=== PATIENT | female | born 1940 | race Caucasian/White ===

== ENCOUNTER 2017-12-16 17:48 | Inpatient (IN) | payer OTHER, MEDICARE ==
[2017-12-16 17:49] VITALS: O2SAT 99
[2017-12-16] MEDS ORDERED: MORPHINE SULFATE 4 MG/ML INJ ONE (17:59)
[2017-12-16] MEDS ORDERED: ONDANSETRON HCL 4 MG/2 ML VIAL ONE (17:59)
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
[2017-12-16 18:16] LABS: HEMATOCRIT 24.8 % (35.0-46.0); HEMOGLOBIN 8.4 GM/DL (11.6-15.3); MEAN CELL VOLUME 92.1 FL (80.0-100.0); MEAN CORPUSCULAR HEMOGLOBIN 31.2 PG (27.0-34.0); MEAN CORPUSCULAR HGB CONC 33.9 % (32.0-36.0); MEAN PLATELET VOLUME 7.3 FL (7.0-11.0); PLATELET COUNT 73 TH/MM3 (150-450); RED CELL DISTRIBUTION WIDTH 16.4 % (11.6-17.2); WHITE BLOOD COUNT 1.5 TH/MM3 (4.0-11.0)
[2017-12-16] MEDS ORDERED: IOHEXOL 350 MG/ML 10 ML VIAL (for RAD DIAG) IVCONTRAST ONE (18:17)
[2017-12-16 18:23] VITALS: O2SAT 97
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
[2017-12-16 18:28] VITALS: BP 131/62; PULSE 91; RESP 18; O2SAT 99
[2017-12-16 18:30] LABS: INTERNATIONAL NORMALIZED RATIO 1.1 RATIO; PROTHROMBIN TIME - PATIENT 10.7 SEC (9.8-11.6)
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
[2017-12-16 19:00] VITALS: BP 128/60; PULSE 85; RESP 18; O2SAT 97
[2017-12-16] MEDS ORDERED: MORPHINE SULFATE 4 MG/ML INJ IV ONE (19:00)
[2017-12-16 19:48] LABS: LYMPHOCYTES 78 % (9-44); MONOCYTES 10 % (0-8); POLYS (SEG NEUTROPHILS) 12 % (16-70)
[2017-12-16 19:54] LABS: NEUTROPHIL # MANUAL DIFF 0.2 TH/MM3 (1.8-7.7)
[2017-12-16] MEDS ORDERED: CEFEPIME INJ 2,000 MG in SODIUM CHLORIDE 0.9% INJ 100 ML IV SCH (20:45)
[2017-12-16 21:32] LABS: ALBUMIN 2.8 GM/DL (3.4-5.0); AST (GOT) 33 U/L (15-37); BICARBONATE 25.2 MEQ/L (21.0-32.0); BLOOD UREA NITROGEN 30 MG/DL (7-18); CALCIUM 8.6 MG/DL (8.5-10.1); CHLORIDE 103 MEQ/L (98-107); CREATININE 1.04 MG/DL (0.50-1.00); GLOMERULAR FILTRATION RATE 46 ML/MIN (>89); GLUCOSE,RANDOM 93 MG/DL (74-106); SODIUM (NA) 138 MEQ/L (136-145)
[2017-12-16 21:33] LABS: ALT (GPT) 32 U/L (10-53)
[2017-12-16 21:35] LABS: ALKALINE PHOSPHATASE 77 U/L (45-117); TOTAL BILIRUBIN ADULT 0.6 MG/DL (0.2-1.0); TOTAL PROTEIN 6.2 GM/DL (6.4-8.2)
[2017-12-16] MEDS ORDERED: NALOXONE HCL 0.4 MG/ML AMP IV PUSH PRN (22:00)
[2017-12-16] MEDS ORDERED: LACTULOSE SYRUP 20 GM/30 ML CUP PO PRN (22:00)
[2017-12-16] MEDS ORDERED: ONDANSETRON HCL 4 MG/2 ML VIAL IVP PRN (22:00)
[2017-12-16] MEDS ORDERED: SODIUM CHLORIDE 0.9% FLUSH 10 ML FLUSH IV FLUSH PRN (22:00)
[2017-12-16] MEDS ORDERED: SENNOSIDES 8.6 MG TAB PO PRN (22:00)
[2017-12-16] MEDS ORDERED: MAGNESIUM HYDROXIDE SUSP 30 ML CUP PO PRN (22:00)
[2017-12-16] MEDS ORDERED: BISACODYL 10 MG SUPP RECTAL PRN (22:00)
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
[2017-12-16] MEDS ORDERED: ONDANSETRON ODT 4 MG TAB PO PRN (22:45)
[2017-12-16 23:00] VITALS: BP 119/57; PULSE 76; RESP 14; TEMP 98.7; O2SAT 98
[2017-12-16] MEDS: PANTOPRAZOLE SODIUM 40 MG VIAL IV PUSH SCH (23:19)
[2017-12-17] VITALS (12 sets, daily range): BP systolic 57–131; BP diastolic 53–66; PULSE 67–97; RESP 16; TEMP 97.8–99.5; O2SAT 97–100
[2017-12-17 00:15] LABS: AMORPHOUS SEDIMENT, URINE RARE; BACTERIA, URINE RARE /hpf; BILIRUBIN, URINE NEG (NEG); BLOOD, URINE LARGE (NEG); GLUCOSE,URINE NEG (NEG); KETONE, URINE 10 mg/dL (NEG); MUCUS URINE FEW /lpf (OCC); NITRITE,URINE NEG (NEG); PH, URINE 5.5 (5.0-8.5); URINE LEUKOCYTE ESTERASE TRACE (NEG); WHITE BLOOD CELL CLUMPS OCC
[2017-12-17 00:16] LABS: URINE COLOR LIGHT-RED (YELLW/STRAW)
[2017-12-17] MEDS ORDERED: SODIUM CHLOR 0.9% 250 ML INJ 250 ML IV ONE (01:45)
[2017-12-17] MEDS: CEFEPIME INJ 2,000 MG in SODIUM CHLORIDE 0.9% INJ 100 ML IV SCH ×5 (05:00→21:52)
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
[2017-12-17] MEDS: PANTOPRAZOLE SODIUM 40 MG VIAL IV PUSH SCH ×2 (08:58→21:52)
[2017-12-17] MEDS: SODIUM CHLORIDE 0.9% FLUSH 10 ML FLUSH IV FLUSH SCH ×2 (08:58→21:00)
[2017-12-17] MEDS: SODIUM CHLOR 0.9% 1000 ML INJ 1,000 ML IV SCH ×2 (09:01→21:59)
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
[2017-12-17] MEDS ORDERED: MORPHINE SULFATE 2 MG/ML SYRINGE IV PUSH PRN (12:00)
[2017-12-17] MEDS: clonazePAM 0.5 MG TAB PO SCH ×2 (14:45→21:52)
[2017-12-17] MEDS ORDERED: VENLAFAXINE HCL XR 37.5 MG CAP PO SCH (14:45)
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
[2017-12-17 19:47] LABS: HEMATOCRIT 27.9 % (35.0-46.0); HEMOGLOBIN 9.7 GM/DL (11.6-15.3); MEAN CELL VOLUME 89.1 FL (80.0-100.0); MEAN CORPUSCULAR HEMOGLOBIN 30.8 PG (27.0-34.0); MEAN CORPUSCULAR HGB CONC 34.6 % (32.0-36.0); MEAN PLATELET VOLUME 7.3 FL (7.0-11.0); PLATELET COUNT 45 TH/MM3 (150-450); RED BLOOD COUNT 3.13 MIL/MM3 (4.00-5.30); WHITE BLOOD COUNT 1.5 TH/MM3 (4.0-11.0)
[2017-12-17 20:49] LABS: LYMPHOCYTES 53 % (9-44); MONOCYTES 12 % (0-8); POLYS (SEG NEUTROPHILS) 35 % (16-70)
[2017-12-17 20:56] LABS: NEUTROPHIL # MANUAL DIFF 0.5 TH/MM3 (1.8-7.7)
[2017-12-17] MEDS: MIRTAZAPINE 15 MG TAB PO SCH (21:52)
[2017-12-17] MEDS: traMADol HCL 50 MG TAB PO PRN (22:05)
[2017-12-18] VITALS (10 sets, daily range): BP systolic 119–137; BP diastolic 55–71; PULSE 60–74; RESP 16–18; TEMP 96.8–99; O2SAT 97–100
[2017-12-18] MEDS: CEFEPIME INJ 2,000 MG in SODIUM CHLORIDE 0.9% INJ 100 ML IV SCH ×3 (05:22→20:27)
[2017-12-18] MEDS: clonazePAM 0.5 MG TAB PO SCH ×3 (06:00→20:26)
[2017-12-18] MEDS: SODIUM CHLOR 0.9% 1000 ML INJ 1,000 ML IV SCH ×2 (07:50→20:19)
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
[2017-12-18 11:56] LABS: ALBUMIN 2.4 GM/DL (3.4-5.0); ALKALINE PHOSPHATASE 68 U/L (45-117); ALT (GPT) 25 U/L (10-53); AST (GOT) 24 U/L (15-37); BLOOD UREA NITROGEN 29 MG/DL (7-18); CALCIUM 8.4 MG/DL (8.5-10.1); CHLORIDE 113 MEQ/L (98-107); CREATININE 0.87 MG/DL (0.50-1.00); GLOMERULAR FILTRATION RATE 63 ML/MIN (>89); GLUCOSE,RANDOM 105 MG/DL (74-106); SODIUM (NA) 144 MEQ/L (136-145); TOTAL BILIRUBIN ADULT 0.8 MG/DL (0.2-1.0); TOTAL PROTEIN 5.7 GM/DL (6.4-8.2)
[2017-12-18] MEDS ORDERED: MORP1TAB24 PO (13:37)
[2017-12-18] MEDS ORDERED: OXYC1CAP PO (13:37)
[2017-12-18] MEDS: PANTOPRAZOLE SODIUM 40 MG VIAL IV PUSH SCH ×2 (14:00→20:26)
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
--- NOTE | 2017-12-18 17:49 | RADRPT ---
EXAM DATE/TIME: 12/18/2017 18:02 [facility] COMPARISON: CHEST SINGLE AP, December 16, 2017, 17:48. INDICATIONS : Left lower chest pain. MEDICAL HISTORY : None. SURGICAL HISTORY : Port placement, right. ENCOUNTER: Initial ACUITY: 1 day PAIN SCORE: 4/10 LOCATION: Left lower chest FINDINGS: A single view of the chest demonstrates no focal consolidation. Minimal basilar atelectasis or scarri ng. No effusion. No pneumothorax. [id number] in the superior vena cava. CONCLUSION: 1. Minimal basilar scarring. No acute findings. Snynwg-x-Onen unchanged. Ramesh Thomason MD on December 18, 2017 at 17:45 Board Certified Radiologist. This report was verified electronically.
[2017-12-18 17:54] LABS: TROPONIN I LESS THAN 0.02 NG/ML (0.02-0.05)
[2017-12-18] MEDS: SODIUM CHLORIDE 0.9% FLUSH 10 ML FLUSH IV FLUSH SCH ×2 (18:49→20:19)
--- NOTE | 2017-12-18 20:11 | HHI.FF ---
Face to Face Verification Diagnosis: (1) Stage IV bladder cancer (2) Pancytopenia due to antineoplastic chemotherapy Physical Therapy Order: Evaluate and Treat Home Health Nursing Order: Medical education Nursing assessment with vital signs Home Health Aide Order: To Assist In: Bathing and personal care, admissions consultant and meal prep [employer] Operator Order: To Evaluate: Living conditions/environment, Support services Order: To Provide: Long range planning, Community services I have seen patient Deepika Coats on 12/18/17. My clinical findings support the need for the requested home health care services because: Limited ability to care for self I certify that my clinical findings support that this patient is homebound because: Unsafe to leave home unassisted Jong Peterson MD December 18, 2017 20:11
[2017-12-18] MEDS: MIRTAZAPINE 15 MG TAB PO SCH (20:26)
[2017-12-18] MEDS ORDERED: LISI10TA3 PO (21:21)
[2017-12-18] MEDS ORDERED: OMEP20TA93 PO (21:21)
[2017-12-18] MEDS ORDERED: PROC10TA PO (21:21)
[2017-12-18] MEDS ORDERED: SERT25TA83 PO (21:21)
[2017-12-18] MEDS ORDERED: ONDA8TAB7 PO (21:21)
[2017-12-18] MEDS ORDERED: LORA0.5T PO (21:21)
[2017-12-18 21:26] LABS: HEMATOCRIT 25.8 % (35.0-46.0); HEMOGLOBIN 8.9 GM/DL (11.6-15.3); MEAN CORPUSCULAR HEMOGLOBIN 31.4 PG (27.0-34.0); MEAN CORPUSCULAR HGB CONC 34.5 % (32.0-36.0); MEAN PLATELET VOLUME 7.2 FL (7.0-11.0); PLATELET COUNT 36 TH/MM3 (150-450); RED BLOOD COUNT 2.84 MIL/MM3 (4.00-5.30); RED CELL DISTRIBUTION WIDTH 15.7 % (11.6-17.2); WHITE BLOOD COUNT 1.8 TH/MM3 (4.0-11.0)
[2017-12-18 22:39] LABS: BASOPHILS 1 % (0-2); LYMPHOCYTES 64 % (9-44); MONOCYTES 14 % (0-8); NEUTROPHIL # MANUAL DIFF 0.3 TH/MM3 (1.8-7.7); POLYS (SEG NEUTROPHILS) 16 % (16-70)
[2017-12-19] VITALS (10 sets, daily range): BP systolic 125–137; BP diastolic 57–70; PULSE 58–103; RESP 16–18; TEMP 98.5–100; O2SAT 97–100
[2017-12-19 00:55] LABS: TROPONIN I LESS THAN 0.02 NG/ML (0.02-0.05)
[2017-12-19] MEDS: clonazePAM 0.5 MG TAB PO SCH (04:46)
[2017-12-19] MEDS: CEFEPIME INJ 2,000 MG in SODIUM CHLORIDE 0.9% INJ 100 ML IV SCH ×3 (04:47→20:32)
[2017-12-19 06:04] LABS: HEMATOCRIT 26.8 % (35.0-46.0); HEMOGLOBIN 9.2 GM/DL (11.6-15.3); MEAN CELL VOLUME 90.9 FL (80.0-100.0); MEAN CORPUSCULAR HEMOGLOBIN 31.3 PG (27.0-34.0); MEAN CORPUSCULAR HGB CONC 34.4 % (32.0-36.0); MEAN PLATELET VOLUME 7.6 FL (7.0-11.0); PLATELET COUNT 30 TH/MM3 (150-450); RED BLOOD COUNT 2.95 MIL/MM3 (4.00-5.30); RED CELL DISTRIBUTION WIDTH 15.8 % (11.6-17.2); WHITE BLOOD COUNT 1.9 TH/MM3 (4.0-11.0)
[2017-12-19 06:23] LABS: TROPONIN I LESS THAN 0.02 NG/ML (0.02-0.05)
[2017-12-19] MEDS ORDERED: FILGRASTIM 300 MCG/ML VIAL SQ ONE (08:00)
[2017-12-19] MEDS: PANTOPRAZOLE SODIUM 40 MG VIAL IV PUSH SCH ×2 (08:46→20:33)
[2017-12-19] MEDS: SODIUM CHLORIDE 0.9% FLUSH 10 ML FLUSH IV FLUSH SCH ×2 (08:50→20:33)
[2017-12-19 09:05] LABS: BANDS 3 % (0-6); CORRECTED NUCLEATED RBC 1 /100 WBC (0-0); LYMPHOCYTES 38 % (9-44); MONOCYTES 21 % (0-8); MYELOCYTES 2 % (0-0); NEUTROPHIL # MANUAL DIFF 0.7 TH/MM3 (1.8-7.7); NUCLEATED RED BLOOD CELL 1 (0-0); POLYS (SEG NEUTROPHILS) 32 % (16-70)
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
--- NOTE | 2017-12-19 18:21 | EKG ---
Date Performed: 12/18/2017 Time Performed: 22:36:10 PTAGE: 77 years EKG: Sinus rhythm NORMAL ECG PREVIOUS TRACING : 12/18/2017 17.22 Since the previous tracing, no significant change noted DOCTOR: Santiago Ureña Interpretating Date/Time 12/19/2017 18:20:19
--- NOTE | 2017-12-19 18:31 | EKG ---
Date Performed: 12/18/2017 Time Performed: 17:22:08 PTAGE: 77 years EKG: Sinus rhythm Normal ECG PREVIOUS TRACING : 12/18/2017 16.51 DOCTOR: Santiago Ureña Interpretating Date/Time 12/19/2017 18:29:25
[2017-12-20] VITALS (7 sets, daily range): BP systolic 124–136; BP diastolic 62–72; PULSE 68–85; RESP 16–18; TEMP 98.2–99; O2SAT 95–99
[2017-12-20 00:43] LABS: AUTOMATED NEUTROPHIL # 6.6 TH/MM3 (1.8-7.7); BASOPHIL % 0.3 % (0.0-2.0); EOSINOPHIL # 0.2 TH/MM3 (0-0.4); HEMATOCRIT 26.6 % (35.0-46.0); HEMOGLOBIN 9.2 GM/DL (11.6-15.3); LYMPH % 15.1 % (9.0-44.0); LYMPHOCYTE # 1.3 TH/MM3 (1.0-4.8); MEAN CELL VOLUME 90.6 FL (80.0-100.0); MEAN CORPUSCULAR HEMOGLOBIN 31.4 PG (27.0-34.0); MEAN CORPUSCULAR HGB CONC 34.6 % (32.0-36.0); MEAN PLATELET VOLUME 7.6 FL (7.0-11.0); MONO % 7.7 % (0.0-8.0); MONOCYTE # 0.7 TH/MM3 (0-0.9); NEUT % 74.9 % (16.0-70.0); PLATELET COUNT 28 TH/MM3 (150-450); RED BLOOD COUNT 2.93 MIL/MM3 (4.00-5.30); RED CELL DISTRIBUTION WIDTH 15.6 % (11.6-17.2); WHITE BLOOD COUNT 8.8 TH/MM3 (4.0-11.0)
[2017-12-20 01:28] LABS: BANDS 17 % (0-6); LYMPHOCYTES 16 % (9-44); MONOCYTES 9 % (0-8); NEUTROPHIL # MANUAL DIFF 6.6 TH/MM3 (1.8-7.7); POLYS (SEG NEUTROPHILS) 58 % (16-70)
[2017-12-20 01:30] LABS: DOHLE BODIES PRESENT (NONE SEEN)
[2017-12-20] MEDS: CEFEPIME INJ 2,000 MG in SODIUM CHLORIDE 0.9% INJ 100 ML IV SCH (04:48)
[2017-12-20] MEDS: PANTOPRAZOLE SODIUM 40 MG VIAL IV PUSH SCH ×2 (08:16→20:08)
[2017-12-20] MEDS: SODIUM CHLORIDE 0.9% FLUSH 10 ML FLUSH IV FLUSH SCH ×2 (08:18→20:08)
[2017-12-20] MEDS ORDERED: TRAM50 PO (09:16)
[2017-12-20] MEDS ORDERED: ONDA4TAB7 PO (09:16)
[2017-12-20] MEDS ORDERED: LORA0.5T PO (09:16)
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
[2017-12-20] MEDS ORDERED: MAGNESIUM HYDROXIDE SUSP 30 ML CUP PO ONE (09:30)
[2017-12-20] MEDS ORDERED: DOCUSATE SODIUM 50 MG/SENNA 8.6 MG TAB PO ONE (09:30)
[2017-12-20] MEDS ORDERED: ALPRAZolam 0.25 MG TAB PO ONE (10:15)
[2017-12-20 11:29] LABS: ALBUMIN 2.1 GM/DL (3.4-5.0); ALKALINE PHOSPHATASE 75 U/L (45-117); ALT (GPT) 26 U/L (10-53); AST (GOT) 24 U/L (15-37); BICARBONATE 25.8 MEQ/L (21.0-32.0); BLOOD UREA NITROGEN 17 MG/DL (7-18); CHLORIDE 114 MEQ/L (98-107); CREATININE 0.87 MG/DL (0.50-1.00); GLOMERULAR FILTRATION RATE 63 ML/MIN (>89); GLUCOSE,RANDOM 99 MG/DL (74-106); SODIUM (NA) 145 MEQ/L (136-145); TOTAL BILIRUBIN ADULT 0.4 MG/DL (0.2-1.0); TOTAL PROTEIN 5.4 GM/DL (6.4-8.2); TROPONIN I LESS THAN 0.02 NG/ML (0.02-0.05)
[2017-12-20] MEDS ORDERED: ADJUSTABLE COMM1 MIS (14:39)
[2017-12-20] MEDS ORDERED: HOSP BED1 (14:39)
[2017-12-20] MEDS ORDERED: WALKER WHEELS/F1 MIS (14:39)
[2017-12-20] MEDS ORDERED: TRANSPORT CHAIR1 MIS (14:40)
--- NOTE | 2017-12-20 16:55 | EKG ---
Date Performed: 12/20/2017 Time Performed: 11:05:07 PTAGE: 77 years EKG: Sinus rhythm NORMAL ECG PREVIOUS TRACING : 12/18/2017 22.36 Since the previous tracing, no significant change noted DOCTOR: Santiago Ureña Interpretating Date/Time 12/20/2017 16:53:31
[2017-12-21] VITALS: PULSE 79
[2017-12-21 01:18] LABS: AUTOMATED NEUTROPHIL # 8.3 TH/MM3 (1.8-7.7); BASOPHIL # 0.2 TH/MM3 (0-0.2); BASOPHIL % 2.2 % (0.0-2.0); EOSINOPHIL # 0.2 TH/MM3 (0-0.4); EOSINOPHIL % 1.7 % (0.0-4.0); HEMOGLOBIN 9.7 GM/DL (11.6-15.3); LYMPH % 13.3 % (9.0-44.0); LYMPHOCYTE # 1.4 TH/MM3 (1.0-4.8); MEAN CELL VOLUME 89.7 FL (80.0-100.0); MEAN CORPUSCULAR HEMOGLOBIN 31.2 PG (27.0-34.0); MEAN CORPUSCULAR HGB CONC 34.8 % (32.0-36.0); MEAN PLATELET VOLUME 7.7 FL (7.0-11.0); MONO % 5.5 % (0.0-8.0); MONOCYTE # 0.6 TH/MM3 (0-0.9); NEUT % 77.3 % (16.0-70.0); PLATELET COUNT 30 TH/MM3 (150-450); RED BLOOD COUNT 3.12 MIL/MM3 (4.00-5.30); RED CELL DISTRIBUTION WIDTH 15.1 % (11.6-17.2); WHITE BLOOD COUNT 10.7 TH/MM3 (4.0-11.0)
[2017-12-21] MEDS: traMADol HCL 50 MG TAB PO PRN (02:06)
[2017-12-21 03:20] VITALS: BP 136/74; PULSE 80; RESP 18; TEMP 98.7; O2SAT 99
[2017-12-21 04:05] VITALS: PULSE 81
[2017-12-21 04:49] LABS: BANDS 14 % (0-6); LYMPHOCYTES 15 % (9-44); METAMYELOCYTES 1 % (0-1); MONOCYTES 3 % (0-8); NEUTROPHIL # MANUAL DIFF 8.7 TH/MM3 (1.8-7.7); POLYS (SEG NEUTROPHILS) 66 % (16-70)
[2017-12-21 04:52] LABS: ACANTHOCYTES OCC (NORMAL); DOHLE BODIES PRESENT (NONE SEEN); OVALOCYTES 1+ (NORMAL)
[2017-12-21 07:45] VITALS: PULSE 85
[2017-12-21] MEDS: SODIUM CHLORIDE 0.9% FLUSH 10 ML FLUSH IV FLUSH SCH (07:49)
[2017-12-21 07:50] VITALS: BP 141/74; PULSE 79; RESP 18; TEMP 98.3; O2SAT 100
[2017-12-21] MEDS: PANTOPRAZOLE SODIUM 40 MG VIAL IV PUSH SCH (07:50)
[2017-12-21] MEDS ORDERED: LORA0.5T PO (10:23)
[2017-12-21] MEDS ORDERED: HOSP BED1 (10:26)
[2017-12-21] MEDS ORDERED: ONDA8TAB7 PO (10:30)
[2017-12-21] MEDS ORDERED: SERT25TA83 PO (10:30)
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
[2017-12-21] MEDS ORDERED: POTASSIUM CHLORIDE 20 MEQ CONTROLLED RELEASE TAB PO ONE (11:00)
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
== END 2017-12-21 13:15 | disposition hospice, home (50) | DRG 809 ==
LOC: NEPI 17:48 → EDBD 20:48 → NEDA 20:48 → HCIS 12-17 01:22 → HCIN 12-17 07:40
PROVIDERS: ADMIT Internal Medicine; ATTEND Internal Medicine
DX: D61.810 Antineoplastic chemotherapy induced pancytopenia (principal); C79.51 Secondary malignant neoplasm of bone; C78.00 Secondary malignant neoplasm of unspecified lung; D70.1 Agranulocytosis secondary to cancer chemotherapy; C67.9 Malignant neoplasm of bladder, unspecified; D64.9 Anemia, unspecified; F32.9 Major depressive disorder, single episode, unspecified; E87.6 Hypokalemia; F41.9 Anxiety disorder, unspecified; G89.29 Other chronic pain; R50.81 Fever presenting with conditions classified elsewhere; Z51.5 Encounter for palliative care; T45.1X5A Adverse effect of antineoplastic and immunosuppressive drugs, initial encounter; V49.9XXD Car occupant (driver) (passenger) injured in unspecified traffic accident, subsequent encounter
CPT/HCPCS: 36430; 70450; 71045; 72125; 72132; 72170; 73120; 74177; 80048; 80053; 81001; 82550; 84484; 85007; 85018; 85027; 85610; 85730; 86077; 86850; 86870; 86900; 86901; 86920; 86922; 87040; 87086; 93005; C9113; J0692; J1442; J2270; J2405; J7030; P9016; Q9967